=== PATIENT | male | born 1990 | race Caucasian/White ===

== ENCOUNTER 2021-10-04 19:49 | Emergency (ER) | payer MEDICAID ==
[~2021-10-04] VITALS: Ht 167.6 cm; Wt 92.0 kg
[2021-10-04 21:30] VITALS: BP 163/109
[2021-10-04] MEDS ORDERED: IBUPROFEN 600MG TABLET PO ONE (21:30)
== END 2021-10-05 02:57 | disposition home or self-care (01) ==
LOC: ER 19:49
DX: S93.401A Sprain of unspecified ligament of right ankle, initial encounter (principal); S80.211A Abrasion, right knee, initial encounter; Y08.89XA Assault by other specified means, initial encounter; Y93.89 Activity, other specified; Y92.9 Unspecified place or not applicable
CPT/HCPCS: 73564; 73610; 99284

== ENCOUNTER 2021-10-22 10:48 | Emergency (ER) | payer MEDICAID ==
[~2021-10-22] VITALS: Ht 167.6 cm; Wt 91.0 kg
[2021-10-22 10:51] VITALS: BP 134/88
[2021-10-22] MEDS ORDERED: ACETAMINOPHEN 500MG TABLET PO ONE (14:15)
[2021-10-22 15:27] LABS: BASOPHILS % 0.4 % (0.0-2.0); EOSINOPHILS % 0.9 % (0.0-5.0); HEMATOCRIT. 47.4 % (42.0-52.0); HEMOGLOBIN. 16.3 g/dL (14.0-18.0); LYMPHOCYTES % 26.7 % (20.0-50.0); MEAN CORPUSCULAR HEMOGLOBIN 30.3 pg (28.0-32.0); MONOCYTES % 5.8 % (2.0-8.0); NEUTROPHILS % 66.2 % (40.0-76.0); PLATELET 256 x1000/uL (130-400); RED BLOOD CELL COUNT 5.39 mill/uL (4.7-6.1); RED CELL DISTRIBUTION WIDTH 13.6 % (11.6-14.6)
[2021-10-22 15:41] LABS: CHLORIDE 103 mEq/L (98-107)
[2021-10-22 15:56] LABS: T4 FREE 0.91 ng/dL (0.76-1.46)
[2021-10-22] MEDS ORDERED: ACET-2708 MT (16:10)
== END 2021-10-22 16:41 | disposition home or self-care (01) ==
LOC: ER 13:55
DX: B34.9 Viral infection, unspecified (principal); M79.10 Myalgia, unspecified site; E11.9 Type 2 diabetes mellitus without complications; Z20.822 Contact with and (suspected) exposure to COVID-19
CPT/HCPCS: 36415; 80053; 84439; 84443; 85025; 87426; 99283; C9803

== ENCOUNTER 2022-07-20 14:19 | Emergency (ER) | payer MEDICAID ==
[~2022-07-20] VITALS: Ht 172.7 cm; Wt 91.0 kg
[~2022-07-20 14:19] MED LIST: ACET-2708 MT
[2022-07-20 14:21] VITALS: BP 144/84
[2022-07-20] MEDS ORDERED: IBUP-2029 MT (14:57)
== END 2022-07-20 15:22 | disposition home or self-care (01) ==
LOC: ER 14:19
DX: R07.89 Other chest pain (principal); E11.9 Type 2 diabetes mellitus without complications
CPT/HCPCS: 71045; 93005; 99283

== ENCOUNTER 2022-07-23 14:23 | Emergency (ER) | payer MEDICAID ==
[~2022-07-23] VITALS: Ht 162.6 cm; Wt 76.0 kg
[~2022-07-23 14:23] MED LIST changes: +IBUP-2029 MT
[2022-07-23] MEDS ORDERED: ASPIRIN 325MG EC TABLET PO ONE (15:30)
[2022-07-23 15:50] LABS: CHLORIDE 103 mEq/L (98-107)
[2022-07-23 15:57] LABS: BASOPHILS % 0.4 % (0.0-2.0); EOSINOPHILS % 1.3 % (0.0-5.0); HEMATOCRIT. 43.5 % (42.0-52.0); HEMOGLOBIN. 14.8 g/dL (14.0-18.0); LYMPHOCYTES % 28.8 % (20.0-50.0); MEAN CORPUSCULAR HEMOGLOBIN 29.6 pg (28.0-32.0); MEAN CORPUSCULAR VOLUME 86.9 fL (80.0-94.0); MONOCYTES % 5.5 % (2.0-8.0); PLATELET 202 x1000/uL (130-400); RED BLOOD CELL COUNT 5.01 mill/uL (4.7-6.1); RED CELL DISTRIBUTION WIDTH 14.9 % (11.6-14.6)
[2022-07-23] MEDS ORDERED: IBUP-2028 MT (16:23)
[2022-07-23 16:30] VITALS: BP 130/76
== END 2022-07-23 16:58 | disposition home or self-care (01) ==
LOC: ER 14:23
DX: R07.89 Other chest pain (principal); R42 Dizziness and giddiness; R11.0 Nausea; F41.9 Anxiety disorder, unspecified; I10 Essential (primary) hypertension; E78.00 Pure hypercholesterolemia, unspecified
CPT/HCPCS: 36415; 71045; 80053; 82962; 83690; 83880; 84484; 85025; 93005; 99285; Z7610

== ENCOUNTER 2024-01-25 15:24 | Emergency (ER) | payer MEDICAID ==
[~2024-01-25] VITALS: Ht 170.2 cm; Wt 98.0 kg
[~2024-01-25 15:24] MED LIST changes: +IBUP-2028 MT
[2024-01-25 15:32] VITALS: O2SAT 98
[2024-01-25] MEDS: ONDANSETRON 4MG ODT PO STA (18:22)
[2024-01-25] MEDS: ACETAMINOPHEN 325MG TABLET PO STA (18:22)
[2024-01-25 18:46] LABS: CLARITY URINE CLEAR (CLEAR); COLOR URINE YELLOW (YELLOW); GLUCOSE URINE NEGATIVE (NEGATIVE); KETONES URINE NEGATIVE (NEGATIVE); LEUKOCYTE ESTERASE URINE NEGATIVE (NEGATIVE); NITRITE URINE NEGATIVE (NEGATIVE); OCCULT BLOOD URINE NEGATIVE (NEGATIVE); PH URINE 6.5 (4.5-8.0); PROTEIN URINE NEGATIVE (NEGATIVE)
[2024-01-25 19:02] LABS: BASOPHILS % 0.3 % (0.0-2.0); HEMATOCRIT. 39.8 % (42.0-52.0); HEMOGLOBIN. 14.1 g/dL (14.0-18.0); LYMPHOCYTES % 24.1 % (20.0-50.0); MEAN CORPUSCULAR HEMOGLOBIN 31.5 pg (28.0-32.0); MEAN CORPUSCULAR HGB CONC 35.4 g/dL (31.0-37.0); MEAN CORPUSCULAR VOLUME 88.9 fL (80.0-94.0); MEAN PLATELET VOLUME 9.2 fl (7.4-10.4); NEUTROPHILS % 66.6 % (40.0-76.0); PLATELET 262 x1000/uL (130-400); RED BLOOD CELL COUNT 4.48 mill/uL (4.7-6.1); RED CELL DISTRIBUTION WIDTH 14.6 % (11.6-14.6); WHITE BLOOD COUNT 8.9 x1000/uL (4.5-11.0)
[2024-01-25 19:17] LABS: CHLORIDE 102 mEq/L (98-107); POTASSIUM 3.8 mEq/L (3.5-5.1); SODIUM 138 mEq/L (136-145)
[2024-01-25 19:18] LABS: CALCIUM 9.4 mg/dL (8.7-10.4); CARBON DIOXIDE 29 mEq/L (21-32)
[2024-01-25 19:23] LABS: CREATININE 0.8 mg/dL (0.6-1.3); GLUCOSE 95 mg/dL (70-105); UREA NITROGEN BLOOD 8 mg/dL (9-23)
[2024-01-25] MEDS ORDERED: MECL-299 MT (20:16)
[2024-01-25] MEDS ORDERED: NAPR-681 PO (20:16)
[2024-01-25 20:33] VITALS: BP 130/78; PULSE 79; RESP 18; TEMP 36.89184; O2SAT 98
== END 2024-01-25 20:35 | disposition home or self-care (01) ==
LOC: ER 15:24
DX: B34.9 Viral infection, unspecified (principal); R51.9 Headache, unspecified; M79.10 Myalgia, unspecified site; Z20.822 Contact with and (suspected) exposure to COVID-19
CPT/HCPCS: 99284; 71045; 87426; 80048; 81003; 85025; 87804 ×2; 36415; Q0162

== ENCOUNTER 2024-01-27 16:10 | Emergency (ER) | payer MEDICAID ==
[~2024-01-27] VITALS: Ht 162.6 cm; Wt 96.0 kg
[~2024-01-27 16:10] MED LIST changes: +MECL-299 MT; +NAPR-681 PO
[2024-01-27 16:12] VITALS: O2SAT 100
[2024-01-27 16:57] LABS: BASOPHILS % 0.4 % (0.0-2.0); EOSINOPHILS % 1.3 % (0.0-5.0); HEMATOCRIT. 39.4 % (42.0-52.0); LYMPHOCYTES % 22.7 % (20.0-50.0); MEAN CORPUSCULAR HEMOGLOBIN 29.6 pg (28.0-32.0); MEAN CORPUSCULAR HGB CONC 33.1 g/dL (31.0-37.0); MEAN CORPUSCULAR VOLUME 89.4 fL (80.0-94.0); MEAN PLATELET VOLUME 8.9 fl (7.4-10.4); MONOCYTES % 8.1 % (2.0-8.0); NEUTROPHILS % 67.5 % (40.0-76.0); PLATELET 318 x1000/uL (130-400); RED CELL DISTRIBUTION WIDTH 14.7 % (11.6-14.6); WHITE BLOOD COUNT 8.1 x1000/uL (4.5-11.0)
[2024-01-27 17:01] LABS: CHLORIDE 104 mEq/L (98-107); POTASSIUM 3.9 mEq/L (3.5-5.1); SODIUM 137 mEq/L (136-145)
[2024-01-27 17:02] LABS: CARBON DIOXIDE 27 mEq/L (21-32)
[2024-01-27 17:03] LABS: CALCIUM 9.5 mg/dL (8.7-10.4)
[2024-01-27 17:07] LABS: CREATININE 0.9 mg/dL (0.6-1.3); GLUCOSE 117 mg/dL (70-105); UREA NITROGEN BLOOD 7 mg/dL (9-23)
[2024-01-27] MEDS: LOPERAMIDE HCL 2MG CAPSULE PO NR (17:51)
[2024-01-27] MEDS: ONDANSETRON 4MG ODT PO NR (17:51)
[2024-01-27] MEDS ORDERED: ONDA4TAB50 MT (18:36)
[2024-01-27] MEDS ORDERED: LOPE2TAB26 MT (18:36)
[2024-01-27 18:44] VITALS: BP 133/87; PULSE 72; RESP 16; TEMP 36.94740; O2SAT 100
== END 2024-01-27 18:44 | disposition home or self-care (01) ==
LOC: ER 16:10
DX: B34.9 Viral infection, unspecified (principal); E78.00 Pure hypercholesterolemia, unspecified; I10 Essential (primary) hypertension; F41.9 Anxiety disorder, unspecified; Z79.899 Other long term (current) drug therapy
CPT/HCPCS: 99283; 80048; 85025; 36415; Q0162